=== PATIENT | male | born 1950 | race Hispanic/Latino ===

== ENCOUNTER → 2016-12-30 | Day surgery (SDC) | payer MEDICARE ==
[2016-12-27 12:33] LABS: BASOPHILS # (AUTO) 0.1 (0.0-0.1); BASOPHILS % 0.7 % (0.0-1.0); EOSINOPHILS # (AUTO) 0.1 (0.0-0.4); EOSINOPHILS % 1.1 % (0.0-6.0); HEMOGLOBIN 14.5 g/dL (14.0-18.0); LYMPHOCYTES # (AUTO) 2.2 (1.0-3.2); LYMPHOCYTES % 22.1 % (18.0-39.1); MEAN CORPUSCULAR HEMOGLOBIN 28.8 pg (28-32); MEAN CORPUSCULAR HGB CONC 33.7 g/dL (31-35); MEAN CORPUSCULAR VOLUME 85.3 fL (81-99); MONOCYTES # (AUTO) 1.3 (0.2-0.8); MONOCYTES % 13.2 % (4.4-11.3); NEUTROPHILS # (AUTO) 6.1 (2.1-6.9); NEUTROPHILS % 62.5 % (38.7-80.0); PLATELET COUNT 238 x10e3/uL (140-360); RED BLOOD COUNT 5.04 x10e6/uL (4.3-5.7); RED CELL DISTRIBUTION WIDTH 13.1 % (11.7-14.4)
[~2016-12-30] MED LIST: ASPIRIN81 MG PO; FENTANYL CITRATE/PF 100MCG/2 ML INJ ONE; GEMFIBROZIL600 MG PO; GLIMEPIRIDE2 MG PO; HAIR, SKIN & N1 EACH PO; HYDROCORTISONE30 GM TOP; JANUVIA100 MG PO; LEVOTHYROXINE50 MCG PO; LIDOCAINE HCL 2% LOCAL INJ 5 ML SDV VIAL INJ ONE; LOSARTAN POTASS25 MG PO; LOVASTATIN20 MG PO; METFORMIN HCL500 M2 PO; MIDAZOLAM HCL 2 MG/2 ML VIAL ONE; PROPOFOL IV EMULSION 10 MG/ML 50 ML VIAL ONE; PROSTATE SUPPORT PO
--- NOTE | 2016-12-30 20:19 | Operative Report ---
DATE OF PROCEDURE: December 30, 2016 REFERRING PHYSICIAN: Dr. Myriam Rivera PROCEDURE PERFORMED: Colonoscopy and polypectomy. INDICATIONS FOR COLONOSCOPY: Colorectal cancer screening. MEDICATION: The patient was done under MAC. Please see anesthesiologist's note. PROCEDURE: With the patient in the left lateral decubitus position, the flexible fiberoptic Olympus colonoscope was inserted into the rectum with ease and advanced all the way to the cecum. It was then withdrawn slowly. Mucosa overlying the cecum and ascending colon appeared to be within normal limits. Transverse polyps times 3, two snared and 1 hot biopsied. Diverticulosis was noted to involve the distal descending and the sigmoid colon. Descending colon polyps times 3 removed per snare electrocautery. One polyp in the sigmoid was hot biopsied. The rectum appeared to be within normal limits. The scope was then retroflexed into the distal rectum and small internal hemorrhoids were noted, none of which was actively bleeding. The scope was then straightened out. The rectosigmoid area, as well as the distal rectal area were decompressed. The scope was subsequently withdrawn. The patient tolerated the procedure well. IMPRESSION 1. Transverse colon polyps times 3, two snared and 1 hot biopsied. 2. Descending colon polyps, 3 snared. 3. Diverticulosis. 4. Sigmoid colon polyp hot biopsied. 5. Internal hemorrhoids, none actively bleeding. PLAN: Follow up histology. Initiate high-fiber and low-fat diet. Initiate high-fiber supplement. The patient will need to have a followup colonoscopy in 3 years. Job#: [id number] RI cc:MYRIAM RIVERA MD
== END | disposition home or self-care (01) ==
LOC: OR 13:45
PROVIDERS: ATTEND Internal Medicine Gastroenterology
DX: Z12.11 Encounter for screening for malignant neoplasm of colon (principal); D12.3 Benign neoplasm of transverse colon; D12.4 Benign neoplasm of descending colon; K57.30 Diverticulosis of large intestine without perforation or abscess without bleeding; R19.5 Other fecal abnormalities; K64.8 Other hemorrhoids; E11.9 Type 2 diabetes mellitus without complications; I10 Essential (primary) hypertension; E03.9 Hypothyroidism, unspecified; H54.8 Legal blindness, as defined in USA; Z01.810 Encounter for preprocedural cardiovascular examination; Z01.812 Encounter for preprocedural laboratory examination; Z79.82 Long term (current) use of aspirin; Z68.31 Body mass index [BMI] 31.0-31.9, adult; I45.10 Unspecified right bundle-branch block
CPT/HCPCS: 36415 ×2; 45384; 45385; 82948; 85025; 93005; J2001; J2250; 45378

== ENCOUNTER 2019-09-03 08:24 | Observation (INO) | payer MEDICARE, OTHER ==
[~2019-09-03] VITALS: Ht 172.7 cm; Wt 93.9 kg
[~2019-09-03 08:24] MED LIST changes: -FENTANYL CITRATE/PF 100MCG/2 ML INJ ONE; -LIDOCAINE HCL 2% LOCAL INJ 5 ML SDV VIAL INJ ONE; -MIDAZOLAM HCL 2 MG/2 ML VIAL ONE; -PROPOFOL IV EMULSION 10 MG/ML 50 ML VIAL ONE
[2019-09-03] MEDS ORDERED: DILTIAZEM HCL 5 MG/ML 5 ML VIAL IV STA (08:52)
[2019-09-03] MEDS ORDERED: SODIUM CHLORIDE 0.9% 500ML 500 ML IV ONE (09:00)
[2019-09-03] MEDS ORDERED: ASPIRIN 81 MG CHEW TAB PO ONE (09:00)
[2019-09-03 09:15] LABS: BASOPHILS # (AUTO) 0.1 (0.0-0.1); BASOPHILS % 0.8 % (0.0-1.0); EOSINOPHILS # (AUTO) 0.1 (0.0-0.4); EOSINOPHILS % 1.1 % (0.0-6.0); HEMATOCRIT 42.2 % (38.2-49.6); HEMOGLOBIN 13.3 g/dL (14.0-18.0); LYMPHOCYTES # (AUTO) 1.8 (1.0-3.2); LYMPHOCYTES % 19.4 % (18.0-39.1); MEAN CORPUSCULAR HEMOGLOBIN 26.3 pg (28-32); MEAN CORPUSCULAR HGB CONC 31.5 g/dL (31-35); MEAN CORPUSCULAR VOLUME 83.6 fL (81-99); MONOCYTES # (AUTO) 1.1 (0.2-0.8); MONOCYTES % 11.6 % (4.4-11.3); NEUTROPHILS % 66.8 % (38.7-80.0); PLATELET COUNT 190 x10e3/uL (140-360); RED BLOOD COUNT 5.05 x10e6/uL (4.3-5.7); RED CELL DISTRIBUTION WIDTH 14.4 % (11.7-14.4)
--- NOTE | 2019-09-03 09:24 | Diagnostic Imaging Report ---
EXAMINATION: CHEST SINGLE (PORTABLE) INDICATION: Atrial fibrillation COMPARISON: None FINDINGS: LINES/TUBES:None LUNGS:The lungs are well-inflated. No focal consolidation or pulmonary edema. PLEURA:No pleural effusion or pneumothorax. MEDIASTINUM:The cardiomediastinal silhouette appears normal in size and shape. BONES/SOFT TISSUES:No acute osseous injury. ABDOMEN:No free air under the diaphragm. IMPRESSION: No focal pneumonia or pulmonary edema. Signed by: Farhat Stanley MD on 09/03/2019 9:21 AM
[2019-09-03] MEDS ORDERED: DILTIAZEM HCL 60 MG TAB PO SCH (09:30)
[2019-09-03] MEDS ORDERED: DILTIAZEM HCL 30 MG TAB ONE (09:34)
[2019-09-03 09:40] LABS: INR 0.91; PARTIAL THROMBOPLASTIN TIME 31.1 seconds (23.8-35.5); PROTHROMBIN TIME 12.8 seconds (11.9-14.5)
[2019-09-03 09:52] LABS: ALANINE AMINOTRANSFERASE 19 IU/L (0-55); ALBUMIN 3.9 g/dL (3.5-5.0); ALBUMIN/GLOBULIN RATIO 1.1 (0.8-2.0); ALKALINE PHOSPHATASE 74 IU/L (40-150); ANION GAP 13.1 mmol/L (8-16); BLOOD UREA NITROGEN 14 mg/dL (7-26); BUN/CREATININE RATIO 15 (6-25); CALCIUM 9.1 mg/dL (8.4-10.2); CARBON DIOXIDE 24 mmol/L (22-29); CHLORIDE 105 mmol/L (98-107); CREATINE KINASE 71 IU/L (30-200); CREATININE, SERUM 0.93 mg/dL (0.72-1.25); EST GLOMERULAR FILTRATION RATE > 60 ML/MIN (60-); GLUCOSE 99 mg/dL (74-118); MAGNESIUM 1.7 MG/DL (1.3-2.1); POTASSIUM 4.1 mmol/L (3.5-5.1); SODIUM 138 mmol/L (136-145)
[2019-09-03] MEDS ORDERED: ONDANSETRON HCL INJ 2MG/ML 2ML 2 MG/ML VIAL IV PRN (10:30)
[2019-09-03 10:39] LABS: FREE THYROXINE INDEX 2.4073 (1.4-3.8); THYROID STIMULATING HORMONE 3.04 uIU/mL (0.350-4.940)
--- NOTE | 2019-09-03 10:39 | Emergency Department Note ---
History of Present Illnes History of Present Illness Chief Complaint: Chest Pain History of Present Illness This is a 69 year old male states he went to dr. rondon's office for check up and told he had an abnormal ekg and told to come into the er for further eval denies CP, SAYS HE HAS VERY OCCASIONAL SOB WHEN LAYING DOWN Historian: Patient Arrival Mode: [facility] Room Cleaner Required: No Onset (how long ago): month(s) (1 (OCCASIONAL SOB)) Radiation: Reports non-radiation Severity: mild Onset quality: gradual Timing of current episode: intermittent Progression: resolved Chronicity: new Context: Denies recent illness Relieving factors: none Exacerbating factors: none Associated symptoms: Reports shortness of breath; Denies chest pain Treatments prior to arrival: none Past Medical/Family History Physician Review I have reviewed the patient's past medical and family history. Any updates have been documented here. Past Medical History Recent Fever: No Clinical Suspicion of Infectio: No New/Unexplained Change in Ment: No Past Medical History: Hypertension, Diabetes, Hypothyroidism, Hyperlipedemia Other Medical History: LEGALLY BLIND Other Surgery: LEFT EYE SX Social History Smoking Cessation: Never Smoker Counseling Performed: No Alcohol Use: None Any Illegal Drug Use: No TB Exposure/Symptoms: No Physically hurt or threatened: No Other Any Pre-Existing Lines (PICC,: No Review of Systems Review of Systems Constitutional: Reports no symptoms EENTM: Reports no symptoms Cardiovascular: Reports no symptoms Respiratory: Reports as per HPI Gastrointestinal: Reports no symptoms Genitourinary: Reports no symptoms Musculoskeletal: Reports no symptoms Integumentary: Reports no symptoms Neurological: Reports no symptoms Psychological: Reports no symptoms Endocrine: Reports no symptoms Hematological/Lymphatic: Reports no symptoms Physical Exam Related Data Allergies: Coded Allergies: codeine (Verified Allergy, Unknown, 12/04/15) morphine (Verified Allergy, Unknown, 12/27/16) niacin (Verified Allergy, Unknown, 12/04/15) propoxyphene (Verified Allergy, Unknown, 12/04/15) Triage Vital Signs Vital Signs Date Time Temp Pulse Resp B/P (MAP) Pulse Ox O2 Delivery O2 Flow Rate FiO2 09/03/19 08:53 98.8 160 18 105/76 97 Room Air Vital signs reviewed: Yes Physical Exam CONSTITUTIONAL Constitutional: Present well-developed, Present well-nourished HENT HENT: Present normocephalic, Present atraumatic, Present oropharynx clear/moist, Present nose normal HENT L/R: Present left ext ear normal, Present right ext ear normal EYES Eyes: Reports PERRL, Reports conjunctivae normal NECK Neck: Present ROM normal PULMONARY Pulmonary: Present effort normal, Present breath sounds normal CARDIOVASCULAR Cardiovascular: Present regular rhythm, Present heart sounds normal, Present capillary refill normal, Present normal rate GASTROINTESTINAL Abdominal: Present soft, Present nontender, Present bowel sounds normal GENITOURINARY Genitourinary: Present exam deferred SKIN Skin: Present warm, Present dry MUSCULOSKELETAL Musculoskeletal: Present ROM normal NEUROLOGICAL Neurological: Present alert, Present oriented x 3, Present no gross motor or sensory deficits PSYCHOLOGICAL Psychological: Present mood/affect normal, Present judgement normal Results Laboratory Result Diagram: 09/03/19 0849 09/03/19 0849 Laboratory Laboratory Tests Test 09/03/19 09:15 09/03/19 08:49 White Blood Count 9.04 x10e3/uL (4.8-10.8) Red Blood Count 5.05 x10e6/uL (4.3-5.7) Hemoglobin 13.3 g/dL (14.0-18.0) Hematocrit 42.2 % (38.2-49.6) Mean Corpuscular Volume 83.6 fL (81-99) Mean Corpuscular Hemoglobin 26.3 pg (28-32) Mean Corpuscular Hemoglobin Concent 31.5 g/dL (31-35) Red Cell Distribution Width 14.4 % (11.7-14.4) Platelet Count 190 x10e3/uL (140-360) Neutrophils (%) (Auto) 66.8 % (38.7-80.0) Lymphocytes (%) (Auto) 19.4 % (18.0-39.1) Monocytes (%) (Auto) 11.6 % (4.4-11.3) Eosinophils (%) (Auto) 1.1 % (0.0-6.0) Basophils (%) (Auto) 0.8 % (0.0-1.0) Neutrophils # (Auto) 6.0 (2.1-6.9) Lymphocytes # (Auto) 1.8 (1.0-3.2) Monocytes # (Auto) 1.1 (0.2-0.8) Eosinophils # (Auto) 0.1 (0.0-0.4) Basophils # (Auto) 0.1 (0.0-0.1) Absolute Immature Granulocyte (auto 0.03 x10e3/uL (0-0.1) Prothrombin Time 12.8 seconds (11.9-14.5) Prothromb Time International Ratio 0.91 Activated Partial Thromboplast Time 31.1 seconds (23.8-35.5) Sodium Level 138 mmol/L (136-145) Potassium Level 4.1 mmol/L (3.5-5.1) Chloride Level 105 mmol/L (98-107) Carbon Dioxide Level 24 mmol/L (22-29) Anion Gap 13.1 mmol/L (8-16) Blood Urea Nitrogen 14 mg/dL (7-26) Creatinine 0.93 mg/dL (0.72-1.25) Estimat Glomerular Filtration Rate > 60 ML/MIN (60-) BUN/Creatinine Ratio 15 (6-25) Glucose Level 99 mg/dL (74-118) Calcium Level 9.1 mg/dL (8.4-10.2) Magnesium Level 1.7 MG/DL (1.3-2.1) Total Bilirubin 0.7 mg/dL (0.2-1.2) Aspartate Amino Transf (AST/SGOT) 18 IU/L (5-34) Alanine Aminotransferase (ALT/SGPT) 19 IU/L (0-55) Alkaline Phosphatase 74 IU/L (40-150) Creatine Kinase 71 IU/L (30-200) Creatine Kinase MB 0.90 ng/mL (0-5.0) Troponin I 0.001 ng/mL (0-0.300) B-Type Natriuretic Peptide 38.9 pg/mL (0-100) Total Protein 7.6 g/dL (6.5-8.1) Albumin 3.9 g/dL (3.5-5.0) Globulin 3.7 g/dL (2.3-3.5) Albumin/Globulin Ratio 1.1 (0.8-2.0) Lab results reviewed: Yes Imaging Imaging results reviewed: Yes Impressions EXAMINATION: CHEST SINGLE (PORTABLE) INDICATION: Atrial fibrillation COMPARISON: None FINDINGS: LINES/TUBES:None LUNGS:The lungs are well-inflated. No focal consolidation or pulmonary edema. PLEURA:No pleural effusion or pneumothorax. MEDIASTINUM:The cardiomediastinal silhouette appears normal in size and shape. BONES/SOFT TISSUES:No acute osseous injury. ABDOMEN:No free air under the diaphragm. IMPRESSION: No focal pneumonia or pulmonary edema. Signed by: Farhat Stanley MD on 09/03/2019 9:21 AM Procedures 12 Lead ECG Interpretation ECG Interpretation : ECG: ECG 1 Room Cleaner: Interpreted by ED physician Date: Sep 03, 2019 Time: 08:42 Rhythm: atrial flutter (2:1 ) Rate: tachycardia (167) QRS axis: right Conduction: right bundle branch block ST segments normal: Yes T wave inversion: III, aVF, V1, V3, V4 Clinical Impression: abnormal ECG Critical Care Time Total Critical Care Time (min): 30 Critcal care necessary due to: cardiac failure Critcal care time spent by me: discussion w consultants, evaluation patient response to tx, order/perform tx or interventions, order/review laboratory studies, re-evaluation of patient condition Assessment & Plan Medical Decision Making MDM NEW ONSET AFIB/FLUTTER W/ RVR - CBC, CHEM'S, ECG, CARDIACS, CXR, TSH - EVAL DYSRHYTHMIA, STEMI/nstemi, HYPERTHYROID, ELECTROLYTE ABNL Reassessment Reassessment I gave 10 mg IV Diltiazem with good effect - HR now 80-90, renal function normal so Lovenox SC given and I ordered ECHO, admit to Dr Marquez ([facility]), also spoke with Dr Lauren Assessment & Plan Final Impression: (1) Atrial fibrillation with RVR (2) New onset atrial fibrillation Depart Disposition: ADMITTED Last Vital Signs Date Time Temp Pulse Resp B/P (MAP) Pulse Ox O2 Delivery O2 Flow Rate FiO2 09/03/19 09:29 110 115/72 09/03/19 09:25 20 100 09/03/19 08:53 98.8 Room Air Home Meds Reported Medications Sitagliptin Phosphate (JANUVIA) 100 Mg Tablet, 100 MG PO DAILY, #30 TAB 12/28/16 Gemfibrozil (GEMFIBROZIL) 600 Mg Tablet, 600 MG PO DAILY 12/28/16 Lovastatin (LOVASTATIN) 20 Mg Tablet, 20 MG PO DAILY 12/28/16 Losartan Potassium (LOSARTAN POTASSIUM) 25 Mg Tablet, 25 MG PO HS 12/28/16 Metformin Hcl (METFORMIN HCL ER) 500 Mg Tab.er.24, 500 MG PO BID, #60 TAB 12/28/16 Glimepiride (GLIMEPIRIDE) 2 Mg Tablet, 4 MG PO BID, TAB 12/28/16 Multivitamin With Minerals (HAIR, SKIN & NAILS) 1 Each Tablet, 1 TAB PO DAILY 12/28/16 Levothyroxine Sodium (LEVOTHYROXINE SODIUM) 50 Mcg Tablet, 50 MCG PO DAILY, #30 TAB 12/28/16 [Prostate Support] No Conflict Check, 1 TAB PO DAILY 12/28/16 Aspirin (ASPIRIN) 81 Mg Tab.chew, 81 MG PO DAILY 12/28/16 Medications in the ED Aspirin 81 mg NOW ONCE PO Last administered on 09/03/19at 09:14; Admin Dose 81 MG; Start 09/03/19 at 09:00; Stop 09/03/19 at 09:06; Status DC Diltiazem HCl 10 mg NOW STAT IV Last administered on 09/03/19at 09:11; Admin Dose 10 MG; Start 09/03/19 at 08:52; Stop 09/03/19 at 09:06; Status DC Sodium Chloride 500 ml @ 0 mls/hr Q0M ONCE IV Last administered on 09/03/19at 09: 11; Admin Dose 999 MLS/HR; Start 09/03/19 at 09:00; Stop 09/03/19 at 09:01; Status DC Diltiazem HCl 30 mg NOW PO Last administered on 09/03/19at 09:29; Admin Dose 30 MG; Start 09/03/19 at 09:30; Stop 09/03/19 at 10:30 Diltiazem HCl 30 mg STK-MED ONCE .ROUTE ; Start 09/03/19 at 09:34; Stop 09/03/19 at 09:29; Status DC Enoxaparin Sodium 100 mg Q12H SC ; Start 09/03/19 at 10:15; Stop 09/10/19 at 10:14; Status JOSE FLORES MD Sep 03, 2019 10:39
[2019-09-03] MEDS ORDERED: ENOXAPARIN SODIUM INJ 100 MG/ML SYR SC SCH (11:00)
--- NOTE | 2019-09-03 11:37 | NUR ---
H&P cc: chest palpitation HPI: 69yoM, PCP , developed chest palpitations, found to have abnormal EKG at PCP, sent ot ED with A.fib with RVR, improved with betablocker. PMH: hypothyroidism, DM2, HTN, HLD, HTG, Obesity, BPH PSHx: eye ALlergies; see emr FH?SH; no cigs; meds; see MAR ROS: no f/c/s/N/V/D/LEYVA/cp/sob/skin rash/back pain/confusion/focal limb weakness v/s revd PEtired appearing anicteric ns1s2; regular mod bs soft nt nd no e/t skin dry n. affect a&ox3; odonnell lab/meds revd A/P: 69yoM A.fib with RVR- BB/apixaban DM2- hba1c/lipids HTN- BB HLD_ statin Hypothyroisim- synthroid BPH- flomax Obesity- hba1c/lipids BMI 32.2- as above Prop: apixaban; pepcid dispo: Gladis Marquez MD, PhD.
[2019-09-03] MEDS ORDERED: ACETAMINOPHEN 325 MG TAB PO PRN (11:45)
[2019-09-03] MEDS ORDERED: DOCUSATE SODIUM 100 MG CAP PO PRN (11:45)
[2019-09-03 12:09] LABS: CHOL/HDL RATIO 2.8 (3.9-4.7)
[2019-09-03] MEDS ORDERED: METOPROLOL TARTRATE INJ 1 MG/ML VIAL IV ONE (12:30)
[2019-09-03] MEDS: FAMOTIDINE 20 MG/2 ML VIAL IV SCH ×2 (13:00→20:41)
[2019-09-03 14:27] LABS: CREATINE KINASE MB 0.7 ng/mL (0-5.0)
[2019-09-03] MEDS: METOPROLOL SUCCINATE 50 MG TAB XL PO SCH ×2 (14:35→20:41)
[2019-09-03 16:00] VITALS: BP 108/80
[2019-09-03 16:10] VITALS: BP 108/80
--- NOTE | 2019-09-03 16:10 | NUR ---
RECEIVED PT FROM ER VIA STRETCHER. PT BLIND. ABLE TO TRANSFER WITHOUT DIFFICULTLY.
--- NOTE | 2019-09-03 17:52 | Consultation ---
DATE OF CONSULTATION: Cardiology Consultation REASON FOR CONSULTATION: Atrial fibrillation. HISTORY OF PRESENT ILLNESS: This is a 69-year-old man with history of hypertension, hyperlipidemia, and diabetes mellitus, who presented from his primary care provider due to atrial fibrillation. He denies any chest pain or palpitations. Reports occasional shortness of breath with exertion, [id number] in intensity. No other exacerbating or relieving factors. REVIEW OF SYSTEMS: A 12-point review of system was conducted, is negative except as stated above in the HPI. PAST MEDICAL HISTORY: As stated above in the HPI. PAST SURGICAL HISTORY: None recent. PAST FAMILY HISTORY: Noncontributory to current illness. SOCIAL HISTORY: No illicit drug, alcohol, or tobacco use. ALLERGIES: CODEINE, MORPHINE, NIACIN, AND PROPOXYPHENE. MEDICATIONS: See medication reconciliation form. PHYSICAL EXAMINATION: VITAL SIGNS: Temperature is 98.8, heart rate is ranging from 81 to 110, blood pressure is 112/48, and oxygen saturation 97% on room air. GENERAL: Well-appearing, well-built, in no apparent distress. Alert and oriented x3. HEAD: Normocephalic and atraumatic. EYES: The extraocular movements are intact. Conjunctiva clear. NECK: No JVD. No bruits. CARDIOVASCULAR: Irregularly irregular, occasionally tachycardic. No murmurs. LUNGS: Clear to auscultation. ABDOMEN: Soft, nontender, and nondistended. EXTREMITIES: No clubbing, cyanosis, or edema. VASCULAR: 2+ pulses. SKIN: Warm, dry, and intact. NEUROLOGIC: No focal deficits noted. Cranial nerves grossly intact. PSYCHIATRIC: Normal mood and affect. LABORATORY DATA: Reviewed. Hemoglobin is 13 and platelets 190. Creatinine is normal. LFTs are normal. Troponin normal. TSH is 3. INR is 0.9. Chest x-ray shows no acute cardiopulmonary abnormality. IMPRESSION: 1. New onset atrial fibrillation. 2. Right bundle branch block. 3. Hypertension. 4. Hyperlipidemia. 5. Diabetes mellitus. RECOMMENDATIONS: The patient's CHADS-VASc score is 3 due to age, hypertension, and diabetes mellitus. We will check a 2D echocardiogram. We will start Toprol-XL for rate control. Start Eliquis for stroke risk reduction. There is no evidence of acute myocardial infarction. Maintain on telemetry. Raffaele DO JACKIE Posey/MARGARET /[id number]
--- NOTE | 2019-09-03 19:04 | NUR ---
WALKING ROUNDS PERFORMED, RECEIVED PT LAYING SEMI FOWLERS IN BED, AAOX3, RR EVEN AND NON-LABORED, ON ROOM AIR. NO S/SX OF DISTRESS NOTED. LEFT PT LAYING SEMI FOWLERS IN BED,BED IN LOW LOCKED POSITION, SIDE RAILS UPX2, CALL LIGHT AND PHONE WITHIN REACH. BED ALARM ACTIVATED ZONE 1.
[2019-09-03 19:13] LABS: CREATINE KINASE MB 0.8 ng/mL (0-5.0)
[2019-09-03] MEDS: APIXABAN 5 MG TABLET PO SCH (19:16)
[2019-09-03 20:00] VITALS: BP 91/71
[2019-09-03 20:13] VITALS: BP 91/71
[2019-09-03] MEDS ORDERED: ZOLPIDEM TARTRATE 5 MG TAB PO PRN (21:00)
[2019-09-03] MEDS ORDERED: SIMVASTATIN 20 MG TAB PO SCH (21:00)
[2019-09-03] MEDS ORDERED: LOSARTAN POTASSIUM 25 MG TAB PO SCH (21:00)
[2019-09-04] VITALS: BP 108/68
[2019-09-04 01:45] LABS: CREATINE KINASE MB 0.7 ng/mL (0-5.0)
[2019-09-04 04:00] VITALS: BP 111/73
[2019-09-04 05:45] LABS: ALANINE AMINOTRANSFERASE 16 IU/L (0-55); ALBUMIN 3.4 g/dL (3.5-5.0); ALKALINE PHOSPHATASE 65 IU/L (40-150); ANION GAP 12.2 mmol/L (8-16); BLOOD UREA NITROGEN 15 mg/dL (7-26); BUN/CREATININE RATIO 17 (6-25); CALCIUM 8.7 mg/dL (8.4-10.2); CARBON DIOXIDE 23 mmol/L (22-29); CHLORIDE 107 mmol/L (98-107); CHOLESTEROL 90 MD/DL (0-199); CREATININE, SERUM 0.88 mg/dL (0.72-1.25); EST GLOMERULAR FILTRATION RATE > 60 ML/MIN (60-); GLUCOSE 88 mg/dL (74-118); HDL CHOLESTEROL 30 MG/DL (40-60); LDL CHOLESTEROL 47 MG/DL (60-130); POTASSIUM 4.2 mmol/L (3.5-5.1); SODIUM 138 mmol/L (136-145); TRIGLYCERIDES 65 MG/DL (0-149)
[2019-09-04] MEDS ORDERED: LEVOTHYROXINE SODIUM 50 MCG TAB PO SCH (06:00)
[2019-09-04 06:50] LABS: BASOPHILS # (AUTO) 0.1 (0.0-0.1); BASOPHILS % 0.9 % (0.0-1.0); EOSINOPHILS # (AUTO) 0.1 (0.0-0.4); EOSINOPHILS % 1.5 % (0.0-6.0); HEMOGLOBIN 11.8 g/dL (14.0-18.0); LYMPHOCYTES # (AUTO) 1.4 (1.0-3.2); LYMPHOCYTES % 21.3 % (18.0-39.1); MEAN CORPUSCULAR HEMOGLOBIN 25.5 pg (28-32); MEAN CORPUSCULAR HGB CONC 30.3 g/dL (31-35); MEAN CORPUSCULAR VOLUME 84.2 fL (81-99); MONOCYTES # (AUTO) 0.8 (0.2-0.8); MONOCYTES % 12.8 % (4.4-11.3); NEUTROPHILS # (AUTO) 4.2 (2.1-6.9); NEUTROPHILS % 63.2 % (38.7-80.0); PLATELET COUNT 167 x10e3/uL (140-360); RED BLOOD COUNT 4.63 x10e6/uL (4.3-5.7); RED CELL DISTRIBUTION WIDTH 14.5 % (11.7-14.4)
--- NOTE | 2019-09-04 07:00 | NUR ---
PT RESTING QUIETLY NO SIGNS OF ANY DISTRESS AT THIS TIME
[2019-09-04] MEDS ORDERED: GEMFIBROZIL 600 MG TAB PO SCH (07:30)
[2019-09-04] MEDS: APIXABAN 5 MG TABLET PO SCH (08:08)
[2019-09-04] MEDS: METOPROLOL SUCCINATE 50 MG TAB XL PO SCH (08:09)
[2019-09-04 08:30] VITALS: BP 111/66
[2019-09-04 08:39] VITALS: BP 111/66
[2019-09-04] MEDS ORDERED: ASPIRIN 81 MG ENTERIC COATED PO SCH (09:00)
[2019-09-04] MEDS ORDERED: NON-FORMULARY MEDICATION (Lovastatin 20 MG) PO SCH (09:00)
[2019-09-04] MEDS ORDERED: SITAGLIPTIN 100 MG TAB PO SCH (09:00)
[2019-09-04] MEDS ORDERED: ASPIRIN 81 MG CHEW TAB PO SCH (09:00)
--- NOTE | 2019-09-04 10:11 | NUR ---
DR PALM TO SEE PT.
--- NOTE | 2019-09-04 10:55 | Progress Note ---
DATE: Cardiology Progress Note SUBJECTIVE: The patient is feeling better. Denies any chest pain, shortness of breath, or palpitations. OBJECTIVE: VITAL SIGNS: Temperature is 97.7, heart rate is 58, respirations are 16, blood pressure is 111/66, and oxygen saturation 98% on room air. GENERAL: Well appearing, in no apparent distress. CARDIOVASCULAR: Regular rate and rhythm. LUNGS: Clear to auscultation. ABDOMEN: Soft, nontender, nondistended. EXTREMITIES: No clubbing, cyanosis, or edema. TELEMETRY: Telemetry monitoring was personally reviewed and shows conversion to normal sinus rhythm. CARDIOVASCULAR MEDICATIONS: Reviewed. LABORATORY DATA: Reviewed. IMPRESSION: 1. Paroxysmal atrial fibrillation. 2. Hypertension. 3. Right bundle-branch block. 4. Hyperlipidemia. 5. Diabetes mellitus. RECOMMENDATIONS: The patient has an elevated CHADS-VASc score of 3 due to age, hypertension, and diabetes mellitus. His echocardiogram showed preserved left ventricular systolic function. We will decrease Toprol-XL to 50 mg daily due to low blood pressure. Continue Eliquis for stroke risk reduction. No evidence of acute myocardial infarction. The patient may be discharged from a cardiovascular standpoint with outpatient followup. DO JACKIE Tyler/MARGARET /[id number]
[2019-09-04] MEDS ORDERED: DOCUSATE SODIUM 100 MG CAP PO PRN (11:00)
[2019-09-04 11:44] VITALS: BP 108/74
[2019-09-04] MEDS ORDERED: TOPROL XL50 MG PO (12:19)
[2019-09-04] MEDS ORDERED: ELIQUIS5 MG PO (12:19)
--- NOTE | 2019-09-04 12:21 | NUR ---
D/C summary Principal dX: A.fib with RVR- BB/apixaban SEcondary Dx: DM2- hba1c/lipids HTN- BB HLD_ statin Hypothyroisim- synthroid BPH- flomax Obesity- hba1c/lipids BMI 32.2- as above Prop: apixaban; pepcid dispo: d/c home with metoprolol and apixaban stable d/c>35mins f/u pcp 2 days and cardio 1 week Gladis Marquez MD, PhD.
[2019-09-04] MEDS ORDERED: ONDANSETRON HCL 4 MG ORAL DISINTEGRATING TAB PO PRN (12:45)
--- NOTE | 2019-09-04 12:57 | NUR ---
PT IV DC EARLIER AND DC INSTRUCTION GIVEN ALONG WITH PRESCRIPTIONS. PT ACCOMPANIED OUT BY STAFF VIA WC.
== END 2019-09-04 12:57 | disposition home or self-care (01) ==
LOC: ER 08:58 → ERHOLD 10:17 → MED/SURG 16:01
PROVIDERS: ADMIT Internal Medicine; ATTEND Internal Medicine
DX: I48.0 Paroxysmal atrial fibrillation (principal); N40.0 Benign prostatic hyperplasia without lower urinary tract symptoms; E66.9 Obesity, unspecified; Z68.32 Body mass index [BMI] 32.0-32.9, adult; E03.9 Hypothyroidism, unspecified; E78.5 Hyperlipidemia, unspecified; Z79.01 Long term (current) use of anticoagulants; I45.10 Unspecified right bundle-branch block
CPT/HCPCS: 36415 ×2; 71045; 80053 ×2; 80061 ×2; 82550 ×2; 82553 ×2; 83036; 83735; 83880; 84436; 84443; 84479; 84484 ×2; 85025 ×2; 85610; 85730; 87635; 93005; 93306; 99284; G0378 ×2; J7040